=== PATIENT | male | born 1985 | race Caucasian/White ===

== ENCOUNTER 2019-03-17 20:54 | Emergency (ER) | payer OTHER ==
[~2019-03-17] VITALS: Ht 175.3 cm; Wt 100.0 kg
[2019-03-17] MEDS ORDERED: NS 1,000 ML IV ONE (22:15)
[2019-03-17 22:37] LABS: BASO # 0.1 10^3/uL (0.0-0.2); BASO % 1.2 % (0.0-1.0); EOS # 0.6 10^3/uL (0.0-0.5); HEMATOCRIT 40.7 % (42.0-52.0); HEMOGLOBIN 13.4 g/dl (13.5-17.5); LYMPH # 2.7 10^3/uL (1.5-5.0); LYMPH % 40.3 % (24.0-44.0); MEAN CORPUSCULAR HEMOGLOBIN 30.6 pg (27.0-33.0); MEAN CORPUSCULAR HGB CONC 32.9 g/dl (32.0-36.5); MEAN CORPUSCULAR VOLUME 92.9 fl (80.0-96.0); MONO # 0.7 10^3/uL (0.0-0.8); MONO % 10.4 % (0.0-5.0); NEUTROPHILS # 2.6 10^3/uL (1.5-8.5); NEUTROPHILS % 38.6 % (36.0-66.0); PLATELET COUNT, AUTOMATED 317 10^3/uL (150-450); RED BLOOD COUNT 4.38 10^6/uL (4.30-6.10); WHITE BLOOD COUNT 6.6 10^3/uL (4.0-10.0)
[2019-03-17 22:56] LABS: ALBUMIN 3.6 GM/DL (3.2-5.2); ALT/SGPT 48 U/L (12-78); BILIRUBIN,DIRECT < 0.1 MG/DL (0.0-0.2); BILIRUBIN,TOTAL 0.3 MG/DL (0.2-1.0); TOTAL PROTEIN 7.3 GM/DL (6.4-8.2)
[2019-03-17] MEDS ORDERED: LACTULOSE 20 GM/30 ML SYRUP UD PO ONE (23:15)
[2019-03-17] MEDS ORDERED: LACT10SO29 PO (23:16)
[2019-03-17 23:26] VITALS: BP 136/86
--- NOTE | 2019-03-18 00:18 | REP ---
Clinical: Right flank and abdominal pain. Technique: Upright view of the chest with supine and upright views of the abdomen and pelvis. Findings: Frontal upright view of the chest demonstrates no acute cardiopulmonary process or free air below the diaphragm to suspect pneumoperitoneum. Supine and upright views of the abdomen and pelvis demonstrate nonspecific bowel gas pattern without obstruction or perforation. No organomegaly. No abnormal calcifications. Skeletal structures normal for age. Impression: Nonspecific bowel gas pattern. Electronically Signed by Yobany Chaudhry MD 03/18/2019 12:11 A
== END 2019-03-17 23:31 | disposition home or self-care (01) ==
LOC: M ED 20:54
DX: R10.9 Unspecified abdominal pain (principal); K59.00 Constipation, unspecified; R19.7 Diarrhea, unspecified

== ENCOUNTER 2021-10-16 12:40 | Emergency (ER) | payer OTHER ==
[~2021-10-16] VITALS: Ht 177.8 cm; Wt 95.5 kg
[~2021-10-16 12:40] MED LIST: LACT20EL PO
[2021-10-16] MEDS ORDERED: ACE65ERTAB PO (12:48)
[2021-10-16] MEDS ORDERED: KETOROLAC 60MG 2ML VIAL IM ONE (14:00)
[2021-10-16] MEDS ORDERED: methocarbamoL 750 MG TAB PO ONE (14:00)
[2021-10-16] MEDS ORDERED: METH-1165 PO (14:57)
[2021-10-16] MEDS ORDERED: KETO10TAB PO (14:57)
[2021-10-16 15:06] VITALS: BP 120/68
== END 2021-10-16 15:07 | disposition home or self-care (01) ==
LOC: M ED 12:40
DX: M54.50 Low back pain, unspecified (principal); U07.1 COVID-19
CPT/HCPCS: 72128; 72131; 96372; 99283; J1885

== ENCOUNTER 2022-05-03 18:24 | Emergency (ER) | payer OTHER ==
[~2022-05-03] VITALS: Ht 175.3 cm; Wt 80.8 kg
[~2022-05-03 18:24] MED LIST changes: +ACE65ERTAB PO; +KETO10TAB PO; +METH-1165 PO
[2022-05-03 18:26] VITALS: BP 133/87
== END 2022-05-04 02:21 | disposition left against medical advice (07) ==
LOC: M ED 18:24
DX: Z53.21 Procedure and treatment not carried out due to patient leaving prior to being seen by health care provider (principal)